=== PATIENT | male | born 1995 | race American Indian/Alaskan Native ===

== ENCOUNTER 2018-05-13 12:32 | Emergency (ER) | payer SELFPAY ==
[2018-05-13 12:54] VITALS: BP 132/63
--- NOTE | 2018-05-13 14:10 | Emergency Department Report ---
ED Anxiety HPI - General Chief Complaint: Chest Pain Stated Complaint: LFT ARM/CHEST PAINS Time Seen by Provider: 05/13/18 13:59 Source: patient, family Mode of arrival: Ambulatory Limitations: No Limitations - History of Present Illness MD Complaint: anxiety -: Gradual Symptoms: chest pain Place: home Previous History of Same: No Severity: mild Quality: intermittant Provoking factors: emotional stress Worsens With: thinking about event, other (stress) - Related Data Allergies/Adverse Reactions: Allergies Allergy/AdvReac Type Severity Reaction Status Date / Time No Known Allergies Allergy Verified 05/13/18 12:50 ED Review of Systems ROS: Stated complaint: LFT ARM/CHEST PAINS Other details as noted in HPI Comment: All other systems reviewed and negative Constitutional: denies: chills, fever Eyes: denies: eye pain ENT: denies: as per HPI, throat pain Respiratory: denies: cough, shortness of breath Cardiovascular: chest pain. denies: palpitations, dyspnea on exertion, orthopnea, edema, syncope Endocrine: denies: excessive sweating Gastrointestinal: denies: abdominal pain, nausea, vomiting Genitourinary: denies: urgency, dysuria Musculoskeletal: back pain (spasm), other (spasm l side and back w cp, gets anxious; worried about son) Skin: denies: rash, lesions Neurological: denies: headache, weakness, numbness, paresthesias, confusion Psychiatric: anxiety. denies: depression Hematological/Lymphatic: denies: easy bleeding ED Past Medical Hx - Past Medical History Previous Medical History?: Yes - Surgical History Past Surgical History?: No - Social History Smoking Status: Current Every Day Smoker Substance Use Type: Alcohol ED Physical Exam - General Limitations: No Limitations, Language Barrier General appearance: alert, in no apparent distress - Head Head exam: Present: atraumatic - Eye Eye exam: Present: PERRL, EOMI Pupils: Present: normal accommodation - ENT ENT exam: Present: mucous membranes moist - Neck Neck exam: Present: normal inspection, full ROM - Respiratory Respiratory exam: Present: normal lung sounds bilaterally - Cardiovascular Cardiovascular Exam: Present: regular rate - GI/Abdominal GI/Abdominal exam: Present: soft - Extremities Exam Extremities exam: Present: normal inspection, full ROM - Back Exam Back exam: Present: normal inspection, full ROM, tenderness - Neurological Exam Neurological exam: Present: alert, oriented X3 - Psychiatric Psychiatric exam: Present: normal affect, normal mood - Skin Skin exam: Present: warm, dry, intact ED Course Vital Signs 05/13/18 12:50 Temperature 98 F Pulse Rate 76 Respiratory 16 Rate Blood Pressure 132/63 O2 Sat by Pulse 100 Oximetry - Reevaluation(s) Reevaluation #1: 05/13/18 14:13 to er today after a few days of what he states is anxiety he describes it as tight shoulders edyta left side that then radiates to l arm. 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 dc home vss feeling much better ED Medical Decision Making - EKG Data -: EKG Interpreted by Me EKG shows normal: sinus rhythm - Differential Diagnosis acs v anciety Critical care attestation.: If time is entered above; I have spent that time in minutes in the direct care of this critically ill patient, excluding procedure time. ED Disposition Clinical Impression: Anxiety Disposition: DC-01 TO HOME OR SELFCARE Is pt being admited?: No Does the pt Need Aspirin: No Condition: Stable Instructions: Generalized Anxiety Disorder (ED), Anxiety (ED) Additional Instructions: no caffeine sleep over the counter benadryl for sleep; or over the counter melatonin Referrals: BOOKER ALARCON [Referring] - 3-5 Days Time of Disposition: 14:08
== END 2018-05-13 20:42 | disposition home or self-care (01) ==
LOC: ED 12:32
DX: F41.9 Anxiety disorder, unspecified (principal); F17.200 Nicotine dependence, unspecified, uncomplicated
CPT/HCPCS: 93005; 93010; 99283